=== PATIENT | female | born 1995 | race Caucasian/White ===

== ENCOUNTER 2024-05-14 07:36 | Emergency (ER) | payer BC, SELFPAY ==
[2024-05-14] VITALS (8 sets, daily range): BP systolic 126–159; BP diastolic 88–93; PULSE 70–110; RESP 18–22; TEMP 36.5; O2SAT 96–98; BMI 23.0
[2024-05-14 07:59] LABS: Appearance Urine Slightly Cloudy (Clear); Bilirubin Urine 1+ (Negative); Blood Urine Negative (Negative); Color Urine Yellow (Yellow); Glucose Urine Negative (Negative); Ketones Urine 4+ (Negative); Leukocyte Esterase Urine Negative (Negative); Nitrite Urine Negative (Negative); Protein Urine Negative (Negative); Urobilinogen Urine 0.2 (0.2-1.0); pH Urine 6.5 (5.0-8.5)
--- NOTE | 2024-05-14 08:05 | CRLHL7_ITS ---
For Patients: As a result of the Century Cures Act, medical imaging exams and procedure reports are released immediately into your electronic medical record. You may view this report before your referring provider. If you have questions, please contact your health care provider. INDICATION: Right lower quadrant pain TECHNIQUE: CT abdomen and pelvis acquired with 74 cc Isovue 370 IV contrast. COMPARISON: None. FINDINGS: Lower chest: Unremarkable. Liver: Unremarkable. Gallbladder and bile ducts: Unremarkable. Pancreas: Unremarkable. Spleen: Unremarkable. Adrenal glands: Unremarkable. Kidneys: Bilateral subcentimeter hypodense lesions, likely cysts. GI tract: No obstruction. No bowel wall thickening. Normal appendix. Vasculature: Abdominal aorta is normal in caliber. Mesenteric arteries are patent. Lymph nodes: No lymphadenopathy. Peritoneum/Abdominal Wall: Unremarkable. Pelvis: Unremarkable. Bones: Unremarkable for age. IMPRESSION: No acute intra-abdominal or intrapelvic pathology to explain symptoms. Please note that all CT scans at this facility use dose modulation, iterative reconstruction, and/or weight-based dosing when appropriate to reduce radiation dose to as low as reasonably achievable. Dictated by Marya Noguera MD @ 05/14/2024 9:43:35 AM (Electronically Signed)
--- NOTE | 2024-05-14 08:06 | ED_ITS ---
HPI - Abdominal Pain General Chief Complaint: Abdominal Pain Stated Complaint: terrible abdominal pain Time Seen by Provider: 05/14/24 07:53 History of Present Illness HPI narrative: This 29-year-old female comes in reporting abdominal pain that began about 12 hours prior to arrival. She states that it has worsened over these 12 hours. She reports that the pain is constant and is diffuse across her lower abdomen but right greater than left. Pain is worse with movement. She has increased pain when standing up straight. She reports nausea but no vomiting. She has felt feverish but did not measure a temperature. Related Data Home Medications ?Medication ?Instructions ?Recorded ?Confirmed Nexplanon 05/14/24 gabapentin 100 mg capsule 100 mg PO Q6H PRN anxiety 05/14/24 05/14/24 venlafaxine 150 mg 150 mg PO DAILY 05/14/24 05/14/24 capsule,extended release 24 hr Previous Rx's ?Medication ?Instructions ?Recorded hydrocodone 5 mg-acetaminophen 325 1 tab PO Q4-6H PRN pain #15 tabs 05/14/24 mg tablet ketorolac 10 mg tablet 10 mg PO Q8H 5 days #15 tabs 05/14/24 ondansetron HCl 4 mg tablet 4 mg PO Q6H #10 tabs 05/14/24 Allergies Allergy/AdvReac Type Severity Reaction Status Date / Time Sulfa (Sulfonamide Allergy Mild rash Verified 05/14/24 09:19 Antibiotics) Review of Systems Status of ROS Reports: 10 or more systems reviewed and unremarkable except as noted in History and below Narrative Constitutional: No fevers, no weight gain or loss. Eyes: No discharge. No vision changes. HENT: No congestion, no sore throat, no ear pain. Cardiovascular: No chest pain, no palpitations. Respiratory: No shortness of breath, no wheezes, no cough. Gastrointestinal: No vomiting, no diarrhea. Abdominal pain as described above. Genitourinary: No dysuria, no hematuria. Musculoskeletal: Normal range of motion. Skin: No rashes, no pruritis. Neurological: No dizziness, weakness, sensory change, speech change. Endo/Heme/Allergies: No bruising or bleeding. No polydipsia. Pysch: no suicidality, no anxiety, no insomnia. All other systems reviewed and are negative. PFSH PFSH Social History Non-prescribed substance use: denies use Exam Narrative: Exam Narrative: Constitutional: Well-developed, well-nourished, no acute distress. HEENT: Normocephalic, atraumatic. Neck: Normal range of motion. Nontender. Supple. Heart: Regular. No murmurs. Normal rate. Intact distal pulses. Lungs: Clear to auscultation. No chest discomfort. No wheezes, rhonchi, or rales. Abdomen: Decreased bowel sounds. Tenderness throughout the abdomen but increased at McBurney's point. Rebound tenderness is present. Genitalia: Deferred. Back: No midline tenderness. Normal range of motion. Extremities: Normal range of motion. No injury. Skin: Intact. No rash. Warm. No erythema or pallor. Neurologic: No altered sensation. No weakness. Alert and oriented. Psychiatric: No suicidality. No anxiety or depression. No insomnia. Nursing notes and vitals signs are reviewed. Const: Vital Signs, click to edit/add: Vital Signs - 24 hr 05/14/24 07:41 Temperature 97.7 F Pulse Rate [Pulse Oximeter] 78 Respiratory Rate 22 Blood Pressure [Ri t Upper Arm] 159/93 H Pulse Oximetry 96 Oxygen Delivery Me thod Room Air Course Vital Signs Vital signs: Initial Vital Signs Temperature 97.7 F 05/14/24 07:41 Temperature Source Temporal Artery Scan 05/14/24 07:41 Pulse Rate 78 05/14/24 07:41 Respiratory Rate 22 05/14/24 07:41 Blood Pressure 159/93 H 05/14/24 07:41 Blood Pressure Mean 115 H 05/14/24 07:41 Blood Pressure Position Sitting 05/14/24 07:41 Pulse Oximetry 96 05/14/24 07:41 Oxygen Delivery Method Room Air 05/14/24 07:41 Vital Signs Temperature 97.7 F 05/14/24 07:41 Pulse Rate 78 05/14/24 07:41 Respiratory Rate 22 05/14/24 07:41 Blood Pressure 159/93 H 05/14/24 07:41 Pulse Oximetry 96 05/14/24 07:41 Oxygen Delivery Method Room Air 05/14/24 07:41 Temperature 97.7 F 05/14/24 07:41 Pulse Rate 78 05/14/24 07:41 Respiratory Rate 22 05/14/24 07:41 Blood Pressure 159/93 H 05/14/24 07:41 Pulse Oximetry 96 05/14/24 07:41 Oxygen Delivery Method Room Air 05/14/24 07:41 Medications Administered Medications: Discontinued Medications Generic Name Dose Route Start Last Admin Trade Name Cain PRN Reason Stop Dose Admin Hydromorphone HCl 0.5 mg 05/14/24 08:04 05/14/24 08:27 Hydromorphone 0.5 Mg/0.5 Ml Inj IVP 05/14/24 08:05 0.5 mg ONCE ONE Administration Ondansetron HCl 4 mg 05/14/24 08:04 05/14/24 08:27 Ondansetron 2 Mg/Ml Inj IVP 05/14/24 08:05 4 mg ONCE ONE Administration MDM - Abdominal Pain MDM Narrative Medical decision making narrative: This patient comes in with lower abdominal pain that seems to be worse with movement and being upright. She was tripping enough triggers where was necessary to do CT imaging of her abdomen and pelvis. This was obtained and shows no findings to explain her pain. Additionally her urine and blood lab results returned with reassuring findings. Patient did receive an IV dose of Dilaudid and Zofran in this brought sufficient relief to her symptoms. Her pain is continuing but there are no findings that are worrisome. I did discuss the role of pelvic ultrasound and in a process of shared decision-making she declined this study for now. The patient is okay to return home. She she did received prescriptions for Toradol, [place], and Zofran. Lab Data Labs: Lab Results 05/14/24 05/14/24 Range/Units 07:50 08:33 WBC 8.37 (4.50-11.00) K/uL RBC 4.50 (4.00-5.20) m/uL Hgb 14.3 (12.0-16.0) gm/dL Hct 41.4 (33.0-51.0) % MCV 92 (80-100) fL MCH 32 (26-34) pg MCHC 35 (32-36) gm/dL RDW Coeff of Lacie 12.0 (11.5-15.5) % Plt Count 250 (140-440) K/uL Neut % (Auto) 83.9 H (42.0-72.0) % Lymph % (Auto) 9.2 L (20-44) % [place] % (Auto) 6.0 (0.0-11.0) % Eos % (Auto) 0.6 (0.0-7.0) % Baso % (Auto) 0.2 (0.0-3.0) % Neut # (Auto) 7.00 (1.7-7.0) K/uL Lymph # (Auto) 0.80 L (0.90-2.90) K/uL [place] # (Auto) 0.50 (0.00-0.90) K/UL Eos # (Auto) 0.05 (0.00-0.50) K/uL Baso # (Auto) 0.02 (0.00-0.30) K/uL Abs Immat Gran (auto) 0.01 (0.00-0.30) K/uL Imm/Tot Granulo (auto) 0.1 % Sodium 132 L (135-149) mmol/L Potassium 3.7 (3.6-5.1) mmol/L Chloride 99 (96-114) mmol/L Carbon Dioxide 22 (20-32) mmol/L Anion Gap 11 (7-15) mEq/L BUN 6 (5-24) mg/dL Creatinine 0.4 L (0.5-1.5) mg/dL Estimated Creat Clear 170.12 Estimated GFR 136 ml/min Glucose 108 (60-115) mg/dL Calcium 8.7 (8.4-10.6) mg/dL Urine Color Yellow (Yellow) Urine Appearance Slightly Cloudy A (Clear) Urine pH 6.5 (5.0-8.5) Ur Specific [place] 1.020 (1.000-1.030) Urine Protein Negative (Negative) Urine Glucose (UA) Negative (Negative) Urine Ketones 4+ A (Negative) Urine Blood Negative (Negative) Urine Nitrite Negative (Negative) Urine Bilirubin 1+ A (Negative) Urine Urobilinogen 0.2 (0.2-1.0) Ur Leukocyte Esterase Negative (Negative) Urine RBC 0-2 (0-2) Urine WBC 0-2 (0-5) Ur Squamous Epith Cells Many A (None-Few) Amorphous Sediment Few A (None) Urine Bacteria Moderate A (None) Urine HCG, Qual Negative (Negative) Imaging Data CT scan - abdomen: Radiologist's impression: No acute intra-abdominal or intrapelvic pathology to explain symptoms. Discharge Plan Discharge Clinical Impression: Abdominal pain Patient Disposition: Home, Self-Care Condition: Stable Additional Instructions: Take medication as prescribed and needed. Follow up with MD or return if worsening symptoms occur. Prescriptions: New hydrocodone-acetaminophen 5-325 mg tablet 1 tab PO Q4-6H PRN (Reason: pain) Qty: 15 0RF ondansetron HCl 4 mg tablet 4 mg PO Q6H Qty: 10 0RF ketorolac 10 mg tablet 10 mg PO Q8H 5 Days Qty: 15 0RF No Action venlafaxine 150 mg capsule,extended release 24hr 150 mg PO DAILY gabapentin 100 mg capsule 100 mg PO Q6H PRN (Reason: anxiety) Nexplanon Patient Comments: L upper arm 2 years ago Follow Up/Referrals: Provider,Not a Local [Primary Care Provider] - Stand Alone Forms: [id number] Info Instructions
[2024-05-14 08:23] LABS: Amorphous Sediment Urine Few; Bacteria Urine Moderate; RBC Urine 0-2 (0-2); Squamous Epithelial Cell Urine Many (None-Few); WBC Urine 0-2 (0-5)
[2024-05-14] MEDS: ONDANSETRON 2 MG/ML inj 4 MG IVP (08:27)
[2024-05-14] MEDS: HYDROmorphone 0.5 mg/0.5 ml inj IVP (08:27)
[2024-05-14 08:44] LABS: Basophils Absolute Auto 0.02 K/uL (0.00-0.30); Basophils Percent Auto 0.2 % (0.0-3.0); Eosinophils Absolute Auto 0.05 K/uL (0.00-0.50); Eosinophils Percent Auto 0.6 % (0.0-7.0); Hematocrit 41.4 % (33.0-51.0); Hemoglobin* 14.3 gm/dL (12.0-16.0); Immature Granulocytes Abs Auto 0.01 K/uL (0.00-0.30); Immature Granulocytes Pct Auto 0.1 %; Lymphocytes Percent Auto 9.2 % (20-44); Mean Corpuscular HGB Conc 35 gm/dL (32-36); Mean Corpuscular Hemoglobin 32 pg (26-34); Mean Corpuscular Volume 92 fL (80-100); Neutrophils Percent Auto 83.9 % (42.0-72.0); Platelet Count* 250 K/uL (140-440); White Blood Count* 8.37 K/uL (4.50-11.00)
[2024-05-14 08:45] LABS: Slide Review Reflex No
[2024-05-14 08:53] LABS: Ur HCG Qualitative* Negative (Negative)
[2024-05-14 09:10] LABS: Chloride* 99 mmol/L (96-114); Sodium* 132 mmol/L (135-149)
[2024-05-14 09:11] LABS: Potassium* 3.7 mmol/L (3.6-5.1)
[2024-05-14 09:13] LABS: Anion Gap 11 mEq/L (7-15); Carbon Dioxide* 22 mmol/L (20-32); Creatinine* 0.4 mg/dL (0.5-1.5); Est. Creatinine Clearance* 170.12; Estimated Glomerular Filt Rate 136 ml/min
[2024-05-14 09:14] LABS: Blood Urea Nitrogen* 6 mg/dL (5-24); Calcium* 8.7 mg/dL (8.4-10.6); Glucose* 108 mg/dL (60-115)
== END 2024-05-14 10:28 | disposition home or self-care (01) ==
PROVIDERS: Emergency Provider Emergency Medicine Emergency Medical Services
DX: R10.9 Unspecified abdominal pain (principal)
CPT/HCPCS: 36415; 74177; 80048; 81001; 81003; 81025; 85025; 87086; 96374; 96375; 99284; 99285; J1171; J2405; Q9967